=== PATIENT | female | born 1975 | race Two or more races ===

== ENCOUNTER 2024-08-18 16:32 | Outpatient (AMB) | payer MEDICAID, SELFPAY ==
--- NOTE | 2024-08-18 16:18 | ORTHONT_ITS ---
Med/Allergies Allergies & Medications Allergies No Known Allergies Allergy (Verified 08/18/24 16:18) Medication Reconciliation cholecalciferol (vitamin D3) 10 mcg (400 unit) capsule 10 mcg PO QDAY 08/04/24 [History Confirmed 08/18/24] ibuprofen 100 mg/5 mL oral suspension 400 mg PO Q6H 08/04/24 [History Confirmed 08/18/24] meloxicam 7.5 mg tablet 7.5 mg PO QDAY #45 tabs 08/04/24 [Rx Confirmed 08/18/24] Subjective Visit Visit for: follow up visit and knee Immunization / Flu Flu Vaccine in the Last 12 Months: No Flu Vaccine Exclusion Criteria: No Exclusion Criteria History of Present Illness Chief complaint: f/u xrays on [place] Patient is a 49-year-old female with bilateral knee pain. The right side is worse than the left. The pains been ongoing for 3 years. Patient has not any injections. She is tried ibuprofen previously. The patient is here for injections. 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 Assessment and Plan Problem List (1) Degenerative arthritis of knee, bilateral: Status: Acute Plan: 49-year-old female with bilateral knee pain and likely either a degenerative meniscal tear or bilateral knee arthritis. X-rays from [facility] were reviewed. This demonstrates joint space narrowing on the medial compartment. She would like to discuss to try anti-inflammatories and injection. Will give an injection at next visit Office Procedures GNS Level of Care Nursing/Assessment Patient Status: Established Patient Nursing Assessment/Reassesment: Medication Reconciliation, Update PMH in EMR and Vital Signs Coordination of Care: Complex Care and Chronic Disease 1-5, Education Complex Pt/Fam, Consent,records obtained, informed consent, Results/Orders obtained and Staff clarify orders Special Needs: Language special needs Established Patient Charge Established Patient Point Assignment: 95 Telehealth Telemed Phone/Video with patient at home & Dr,PA,DRAPERY HEMMER [employer]: Yes
== END 2024-08-18 16:34 | disposition home or self-care (01) ==
LOC: HODSRG 16:32
PROVIDERS: Supervising Provider Orthopaedic Surgery Adult Reconstructive Orthopaedic Surgery; Visit Provider Orthopaedic Surgery Adult Reconstructive Orthopaedic Surgery
DX: M17.0 Bilateral primary osteoarthritis of knee (principal); M25.562 Pain in left knee; M25.561 Pain in right knee
CPT/HCPCS: 99212; G0463

== ENCOUNTER 2024-09-01 15:19 | Outpatient (AMB) | payer MEDICAID, SELFPAY ==
--- NOTE | 2024-09-01 15:33 | PD.ORTHCLVIS ---
Vital signs 09/01/24 15:37 Height 1.6 m Height Method Stated Weight 76.232 kg Weight Measurement Method Standing Scale BMI 29.7 BP 142/91 H Blood Pressure Source Automatic Cuff Blood Pressure Location Left Upper Arm Position Sitting Respiration 18 Pulse 83 Pulse Source Monitor Temp 97.5 F Temp Source Temporal Artery Scan Pulse Oximetry (%) 99 Oxygen Delivery Method Room Air Med/Allergies Allergies & Medications Allergies No Known Allergies Allergy (Verified 09/01/24 15:38) Medication Reconciliation cholecalciferol (vitamin D3) 10 mcg (400 unit) capsule 10 mcg PO QDAY 08/04/24 [History Confirmed 09/01/24] ibuprofen 100 mg/5 mL oral suspension 400 mg PO Q6H 08/04/24 [History Confirmed 09/01/24] meloxicam 7.5 mg tablet 7.5 mg PO QDAY #45 tabs 08/04/24 [Rx Confirmed 09/01/24] Subjective Visit Visit for: follow up visit, knee and injections Immunization / Flu Flu Vaccine in the Last 12 Months: No Flu Vaccine Exclusion Criteria: No Exclusion Criteria History of Present Illness Chief complaint: RIGHT KNEE FOLLOW UP/INJECTION Patient is a 49-year-old female with bilateral knee pain. The right side is worse than the left. The pains been ongoing for 3 years. Patient has not any injections. She has tried ibuprofen previously. The patient is here for injections. 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 Exam Exam Patient is in no acute distress and is cooperative with the examination today. Breathing is nonlabored. In no respiratory distress. Bilateral extremities were evaluated and demonstrates sensation intact to light touch. Palpable pedal pulses are present. No significant edema is present. Bilateral hips were examined. The patient has no pain with log roll of the hips. Internal rotation to 30 degrees and external rotation to 30 degrees is painless. Negative FADIR. The left knee was examined. The left knee is in [varus] alignment. Range of motion from [0-115] degrees. Knee is stable to varus and valgus as well as AP translation with <5mm. Patient has a [negative] [place]. There is [no] pain with patellofemoral compression and [no] crepitus noted. The knee is [tender] to palpation [medially]. The right knee was also examined. The right knee is in [varus] alignment. Range of motion from [0-120] degrees. Knee is stable to varus and valgus as well as AP translation with <5mm. Patient has a [negative] [place]. There is [no] pain with patellofemoral compression and [no] crepitus noted. The knee is [tender] to palpation [medially]. Assessment and Plan Problem List (1) Degenerative arthritis of knee, bilateral: Status: Acute Plan: 49-year-old female with bilateral knee pain and likely either a degenerative meniscal tear or bilateral knee arthritis. X-rays from [facility] were reviewed. This demonstrates joint space narrowing on the medial compartment. She would like to discuss to try anti-inflammatories and injection. She wants just a right knee injection today. Recommend knee cortisone injection as patient would like to proceed with conservative treatment at this time. The risks and benefits of the procedure were reviewed with the patient and patient gave verbal consent to continue with the procedure. Procedure: performed by Dr. Srinivasan Using sterile technique the Right knee was thoroughly prepped with alcohol, and approximately 1 cc of Kenalog 40 mg/mL and 4 cc of 1% lidocaine was injected without resistance into the medial tibial femoral joint space. The patient tolerated the procedure. Office Procedures GNS Level of Care Nursing/Assessment Patient Status: Established Patient Nursing Assessment/Reassesment: Medication Reconciliation, Update PMH in EMR and Vital Signs Coordination of Care: Complex Care and Chronic Disease 1-5, Education Complex Pt/Fam, Consent,records obtained, informed consent, 1 Ins Authorization, Results/Orders obtained and Staff clarify orders Special Needs: Language special needs Established Patient Charge Established Patient Point Assignment: 110 Established Patient Point Charge: EP Level 3 (80-115) Surgical Proc/IM SQ injection Major Surgical Procedure: Yes (RIGHT KNEE INJECTION) Medication Given Medication Given Medication Given: Yes Documented Dose Given: 4 Route: Infiitration Medication Given Medication Given Medication Given: Yes Documented Dose Given: 1 Route: Infiitration Office Meds Xylocaine 10 mg/mL (1 %) injection solution Performing Provider: Valerio Srinivasan MD Performing Location: [facility] Administered by: Valerio Srinivasan MD on 09/01/24 15:44 Dose Route Admin Location Dispensed Lot Number Expiration Date [facility] [place] Radiation Oncology Nurse 20 mL Infiltration 20 mL [id number] triamcinolone acetonide 40 mg/mL suspension for injection Performing Provider: Valerio Srinivasan MD Performing Location: [facility] Administered by: Valerio Srinivasan MD on 09/01/24 15:44 Dose Route Admin Location Dispensed Lot Number Expiration Date [facility] [place] Radiation Oncology Nurse 40 mg intra-articular 1 mL [id number] Past Medical History Past Medical History Have you ever been diagnosed with any of the following: Respiratory Problems Smoking: No Smoking Exposure: No
[2024-09-01 15:37] VITALS: BP 142/91; PULSE 83; RESP 18; TEMP 36.4; O2SAT 99; BMI 29.7
== END 2024-09-01 15:41 | disposition home or self-care (01) ==
LOC: HODSRG 15:19
PROVIDERS: Supervising Provider Orthopaedic Surgery Adult Reconstructive Orthopaedic Surgery; Visit Provider Orthopaedic Surgery Adult Reconstructive Orthopaedic Surgery
DX: M17.0 Bilateral primary osteoarthritis of knee (principal); M25.561 Pain in right knee; M25.562 Pain in left knee
CPT/HCPCS: 20610; 99213; J3301; J3490; G0463